=== PATIENT | female | born 1960 ===

== ENCOUNTER 2023-02-15 07:46 | Observation (INO) ==
[~2023-02-15 07:46] MED LIST: Acetaminophen IV 1 GM/100ML 1,000 MG/100 ML BAG IV ONE; Buffered Lidocaine 1% SYRIN 1 ml INTRADERM ONE; Famotidine IV 10 MG/ML 2 ml VIAL (20 mg) IV ONE; Lactated Ringers 1000 ml BAG 1,000 ML IV SCH; Lidocaine 2% PF 5 ML VIAL ONE; Midazolam 5 mg/5 ml VIAL 1 mg/ml 5 ml VIAL (5 mg) ONE; Ondansetron 4 mg VIAL 2 MG/ML 2 ml VIAL ONE; Propofol 10 mg/ml 100 ML BTL 1,000 MG/100 ML BTL ONE; fentaNYL 100 mcg/2 ml 50 MCG/ML VIAL ONE
[2023-02-15] MEDS ORDERED: ceFAZolin 2 GM in NS PREMIX 2 GM/100 ML BAG IVPB ONE (08:58)
[2023-02-15] MEDS ORDERED: Famotidine IV 10 MG/ML 2 ml VIAL (20 mg) ONE (08:58)
[2023-02-15] MEDS ORDERED: Midazolam 5 mg/5 ml VIAL 1 mg/ml 5 ml VIAL (5 mg) ONE (09:15)
[2023-02-15] MEDS ORDERED: ROPIVACAINE 5 MG/ML 30 ML BTL (0.5%) ONE ×2 (09:15→09:25)
[2023-02-15] MEDS ORDERED: fentaNYL 100 mcg/2 ml 50 MCG/ML VIAL ONE (09:15)
[2023-02-15 09:24] LABS: Rapid COVID-19 Molecular Undetected (Undetected)
[2023-02-15] MEDS ORDERED: Dexamethasone IV 4 MG/ML VIAL 1 ml VIAL ONE (10:41)
[2023-02-15] MEDS ORDERED: Glycopyrrolate IV 0.2 MG/ML 1 ML VIAL ONE (10:43)
[2023-02-15] MEDS ORDERED: fentaNYL 100 mcg/2 ml 50 MCG/ML VIAL IV PRN (11:06)
[2023-02-15] MEDS ORDERED: Naloxone 0.4 mg VIAL 0.4 mg/ml 1 ml VIAL IV PRN (11:06)
[2023-02-15] MEDS ORDERED: HYDROmorphone 1 MG/1 ML SYRINGE IV PRN (11:06)
[2023-02-15] MEDS ORDERED: Lactulose 30 ml UDC PO PRN (11:12)
[2023-02-15] MEDS ORDERED: Ondansetron 4 mg VIAL 2 MG/ML 2 ml VIAL IV PRN (11:12)
[2023-02-15] MEDS ORDERED: Magnesium Hydroxide LIQ 30 ML UDC PO PRN (11:12)
[2023-02-15] MEDS ORDERED: Ondansetron ODT 4 mg TAB 4 MG TAB PO PRN (11:12)
[2023-02-15] MEDS ORDERED: Morphine 2 MG/ML SYRINGE IV PRN (11:12)
[2023-02-15] MEDS: Lactated Ringers 1000 ml BAG 1,000 ML IV SCH (14:50)
[2023-02-15] MEDS: ceFAZolin 1 GM ADVAN 1 GM in NS 0.9% 50 ML 50 ML IVPB SCH (18:20)
[2023-02-15] MEDS: Magnesium Hydroxide LIQ 30 ML UDC PO SCH (22:53)
[2023-02-16] MEDS: Lactated Ringers 1000 ml BAG 1,000 ML IV SCH (00:50)
[2023-02-16] MEDS: ceFAZolin 1 GM ADVAN 1 GM in NS 0.9% 50 ML 50 ML IVPB SCH ×2 (02:50→10:30)
[2023-02-16 06:42] LABS: Hematocrit 32.8 % (35-45); Hemoglobin 11.4 g/dL (11.5-14.3); Platelet Count 221 10^3/uL (150-450)
[2023-02-16 07:10] LABS: Calcium 8.7 mg/dL (8.6-10.3); Creatinine, Serum 0.78 mg/dL (0.51-0.95); Potassium 3.9 mmol/L (3.5-5.0); eGFR CKD-EPI 84.8 (>60)
[2023-02-16] MEDS: Magnesium Hydroxide LIQ 30 ML UDC PO SCH (07:42)
[2023-02-16] MEDS ORDERED: Vitamin THERAPEUTIC TAB PO SCH (09:00)
[2023-02-16 13:43] VITALS: BP 122/74
== END 2023-02-16 15:25 | disposition home or self-care (01) ==
LOC: OR 07:46 → SSU 07:46
PROVIDERS: ADMIT Orthopaedic Surgery Adult Reconstructive Orthopaedic Surgery; ATTEND Orthopaedic Surgery Adult Reconstructive Orthopaedic Surgery